=== PATIENT | male | born 1975 | race Caucasian/White ===

== ENCOUNTER 2018-01-01 08:16 | Inpatient (IN) ==
[2018-01-01] MEDS ORDERED: Heparin 1,000 UNITS/500 mL 500 ML ONE (08:32)
[2018-01-01] MEDS ORDERED: 0.9 % Sodium Chloride 1,000 ML ONE (08:32)
[2018-01-01] MEDS ORDERED: ISOVUE-370 200 ML INFUS..BTL IV ONE (08:32)
[2018-01-01] MEDS ORDERED: Verapamil 5 MG/2 ML VIAL ONE (08:32)
[2018-01-01] MEDS ORDERED: *HR* Heparin 10,000 UNIT/10 ML VIAL ONE (08:32)
[2018-01-01] MEDS ORDERED: Nitroglycerin 1,000 MCG/10 ML VIAL IV ONE (08:32)
[2018-01-01] MEDS ORDERED: *HR* Midazolam HCl 2 MG/2 ML VIAL ONE ×2 (08:46→09:26)
[2018-01-01] MEDS ORDERED: *HR* FentaNYL (PF) 100 MCG/2 ML VIAL ONE (08:47)
[2018-01-01] MEDS ORDERED: Tirofiban 12.5 MG/250ML 12.5 MG/250 ML BAG ONE (09:04)
[2018-01-01] MEDS ORDERED: Ondansetron 4 MG/2 ML VIAL IVP PRN (10:21)
--- NOTE | 2018-01-01 10:21 | Pre-Sedation Evaluation ---
Pre-sedation evaluation - Pre-sedation checklist Date of procedure: 01/01/18 Procedure: [facility] Recent Vitals: vs as documented in emr H&P (including ROS) documented in medical record: Yes Previous reaction to sedatives/anesthetics: No Dietary Status: NPO after Midnight Airway Assessment: Patient can open mouth completely, TMJ function normal Dentition: No loose teeth or bridges ASA Classification *see protocol: CLASS II-Mild systemic disease, E-EMERGENCY- Add to any of the above to indicate emergent Plan of Care: Pt appropriate candidate for procedure/moderate/conscious sedation , Risks/benefits of procedure/sedation discussed w/ patient/family, If not NPO; Risk of intake outweiged by necessity to perform procedure
--- NOTE | 2018-01-01 10:22 | Invasive Diagnostic Lab Proc ---
Name: Pedrito Ríos Date of Study: 01/01/2018 Date: 1975 Ht: 70.9in Medical Record#: [id number] Age: 42 Wt: 196.21lb Gender: Male BSA: 2.09 Order #: [id number] BMI: 27.47 Physicians Procedure Physician: Yevgeniy Vora MD, FACC Referring MD: None Referring MD: Staff Name Position Time In Sam Kearney RN Monitor 09:03 AM Brandyn Canela RN Boarding Kennel Or Cattery Operator 09:03 AM Loren Yee RT (R) Scrub 09:03 AM Indications Indication STEMI Procedures Performed Procedure PRQ CARD REVASC AK 1 VSL L HRT ARTERY/VENTRICLE ANGIO PRQ CARDIAC ANGIO ADDL ART Pre-Procedure Checklist Informed consent is complete signed and on chart. H&P is on chart. ID band is on and ID verified with patient. Pt not NPO for procedure and MD aware. The procedure was described for the patient and questions were answered. Blood Pressure: 151/107 ECG is on chart. Rhythm: NSR Plan of Care Patient will tolerate the procedure without complications. Adequate level of comfort will be maintained. Hemodynamics will remain stable Patient will recover from procedure without complications. Respiratory function will be maintained. Cardiac rhythm will remain stable. Patient temperature will be maintained. Patient and/or family have verbalized understanding of the procedure. Patient Education Chief Complaint/Reason for Test: Cardiac Cath Developmental Category: Adult (18-64 years) Developmentally Appropriate for Age: Yes Learning Barriers: None Education Needs: Procedure Education Method: Verbal Information Taught: Cardiac Cath Educational Evaluation: Able to repeat information Intravenous Access Time IV Size Location DC'd Fluid/Drip Rate Units RN 09:07 AM 18g 1 1/4" Patent On Arrival Lt Antecubital 0.9NaCl 25 ml/hr Sam Kearney RN 09:07 AM 18g 1 1/4" Patent On Arrival Rt Antecubital Sam Kearney RN Allergies No Known Allergies Vital Signs Time BP (mmHg) HR (bpm) O2 Sat. RR (bpm) LOC 08:42 AM 148 / 100 94 % 18 5 = Fully awake and oriented or at pre-proc level 09:38 AM 126 / 76 97 95 % 09:43 AM 128 / 81 88 96 % 09:48 AM 126 / 83 91 94 % 09:53 AM 124 / 84 90 95 % 09:04 AM 151 / 107 89 99 % 09:08 AM 148 / 95 94 96 % 09:13 AM 128 / 81 94 90 % 09:18 AM 128 / 84 91 93 % 09:23 AM 128 / 85 93 95 % 09:28 AM 132 / 80 95 97 % 09:33 AM 125 / 84 91 93 % Procedural Medications Time Medication Dose Units Method Given By 09:03 AM Oxygen 3 L/min nasal cannula Brandyn Canela RN 09:06 AM Lidocaine 2% 0.5 ml Subcutaneous Yevgeniy Vora MD, FAC 09:08 AM Versed 2 mg Intravenous Brandyn Canela RN 09:08 AM Fentanyl 50 mcg Intravenous Brandyn Canela RN 09:09 AM Heparin 0 units Nitroglycerin 200 mcg Verapamil 2.5 mg Intraarterial Yevgeniy Vora MD, FAC 09:25 AM Aggrastat Bolus: 46 ml Intravenous Brandyn Canela RN 09:26 AM Aggrastat 12.5mg/250ml 16.5 ml/hr Intravenous Brandyn Canela RN 09:26 AM Nitroglycerin 200 mcg Intracoronary Yevgeniy Vora MD 09:27 AM Versed 2 mg Intravenous Brandyn Canela RN 09:28 AM Fentanyl 50 mcg Intravenous Brandyn Canela RN 09:33 AM Nitroglycerin 200 mcg Intracoronary Yevgeniy Vora MD 09:43 AM Nitroglycerin 200 mcg Intracoronary Yevgeniy Vora MD ASA Classification: Emergent Procedure: ASA score is assumed Madina Score Preprocedure Postprocedure Activity 2- Moves 4 extremities sustained head lift Activity Circulation 2- SBP +/= 20 points of pre-anesthetic level Circulation Consciousness 2- Awake and alert oriented x 3 Consciousness O2 Saturation 2- Able to maintain O2 satruation of 92% on room air O2 Saturation Respiratory 2- Able to deep breathe and cough well Respiratory Total Score 10 Total Score Contrast Agent: Isovue Diagnostic Contrast: 135 ml Total Contrast: 135 ml Fluoro Dose: 692 mGy Activated Clotting Time Time Seconds to Clot 09:15 AM 212 Procedure Log Time Note Enter By 08:47 AM CathStat 09:02 AM Recorded ECG: HR=96 Condition=Condition 1 09:02 AM Case Start 09:02 AM Vitals capture started with the following parameters, Patient=Adult, Interval=5 min, Initial Gjfkpldg=776 mmHg, Deflation Rate=5 mmHg, Cuff placed on Right Arm 09:03 AM Pt arrived to metallurgical laboratory assistant 2 at 08:55, heparin gtt turned off upon arrival to the [facility] 09:03 AM Sam Kearney RN Position: Monitor Time in: : [facility] 09:03 AM Brandyn Canela RN Position: Boarding Kennel Or Cattery Operator Time in: : [facility] 09:03 AM Loren Yee RT (R) Position: Scrub Time in: 09:03 [facility] 09:03 AM Patient charges- Angio tray pack, Navilyst 3mm J, Pulse Oximetry and ACIST tubing and transducer csmith 09:03 AM Hair removed from procedure site in procedure lab using clippers. Bilateral groin & right wrist prepped with Chloraprep by Loren Yee (R), then patient was draped. Skin intact. csmith 09:03 AM Physician arrived 09: [facility] 09:03 AM Procedure start : [facility] 09:03 AM Time: 09:03 Oxygen on at 3 L/min per nasal cannula by Brandyn Canela RN [facility] 09:04 AM HR=89 bpm, PVJU=863/107 mmhg, SpO2=99.0 %, Comment=sr 09:06 AM Time out performed according to hospital policy [facility] 09:06 AM Time: 09:06 0.5 ml Lidocaine 2% to right radial Subcutaneous Given by Yevgeniy Vora MD, FACC [facility] 09:07 AM Access obtained by percutaneous puncture. 5/6Fr 11cm Terumo Glidesheath sheath placed in right Femoral artery. [id number] [facility] 09:08 AM Time: 09:08 Versed 2 mg Intravenous Given by Brandyn Canela RN [facility] 09:08 AM Time: 09:08 Fentanyl 50 mcg Intravenous Given by Brandyn Canela RN [facility] 09:08 AM HR=94 bpm, RVSA=589/95 mmhg, SpO2=96.0 %, Comment=sr 09:09 AM Time: 09:09 Patient given 0 units Heparin, 200 mcg Nitroglycerin, and 2.5 mg Verapamil Intraarterial by Yevgeniy Vora MD, FACC. This is given to reduce risk of vessel spasm and thrombosis. [facility] 09:10 AM Pressure channel 1 zeroed. 09:10 AM 0.035 260cm Navilyst 3mmJ wire [id number] [facility] 09:10 AM 6Fr RBL 3.5 Convey guide catheter was used to cannulate the PCI vessel successfully. reused? No csmith 09:10 AM Inflation device was opened. csmith 09:11 AM Recorded Pressure: Ao, EX=894, Condition=Condition 1 (Aorta) Ao 126/99/111 09:12 AM LCA angiography performed in multiple views. csmith 09:12 AM Recorded Pressure: Ao, DU=787, Condition=Condition 1 (Aorta) Ao 128/103/115 09:13 AM HR=94 bpm, DVDX=030/81 mmhg, SpO2=90.0 %, Comment=sr 09:13 AM Lesion found in Proximal LAD. Pre Stenosis: 100 Pre PRAKASH Flow: 0: No Flow/No perfusion csmith 09:14 AM .014 [place] 190cm guide wire across target lesion- successful. reused? No csmith 09:14 AM 2.0 mm x 15 mm Emerge Monorail balloon across target lesion- successful. reused? No csmith 09:14 AM act drawn and running csmith 09:15 AM At 09:15 the ACT was 212 seconds. csmith 09:15 AM Balloon inflated @ 10 tori for 11 seconds csmith 09:16 AM Balloon inflated @ 10 tori for 10 seconds csmith 09:16 AM Balloon inflated @ 10 tori for 6 seconds csmith 09:17 AM Balloon inflated @ 12 tori for 11 seconds csmith 09:18 AM HR=91 bpm, SMQH=845/84 mmhg, SpO2=93.0 %, Comment=sr 09:19 AM Balloon catheter removed intact. csmith 09:19 AM 2.25mm x 32mm Synergy drug-eluting stent across target lesion- successful Lot #[id number] csmith 09:21 AM Stent deployed @ 12 tori for 17 seconds csmith 09:22 AM Stent delivery system removed intact. csmith 09:23 AM 3.5 mm x 6mm NC Emerge balloon across target lesion- successful. reused? No csmith 09:23 AM HR=93 bpm, LGZS=252/85 mmhg, SpO2=95.0 %, Comment=sr 09:25 AM Balloon inflated @ 16 tori for 22 seconds csmith 09:26 AM Time: :25 Aggrastat Bolus: 46 ml Intravenous Given by Brandyn Canela RN Fry pump csmith 09: AM Time: : Aggrastat 12.5mg/250ml 16.5 ml/hr Intravenous Given by Brandyn Canela RN Fry pump csmith 09:26 AM Balloon catheter removed intact. csmith 09: AM Time: 09: Nitroglycerin 200 mcg Intracoronary Given by Yevgeniy Vora MD csmith 09:27 AM Lesion found in 1st Diagonal. Pre Stenosis: 99 Pre PRAKASH Flow: 2: Partial Flow/Perfusion (> 1 but < 3) csmith 09:27 AM Time: 09: Versed 2 mg Intravenous Given by Brandyn Canela RN csmith 09:28 AM Time: 09: Fentanyl 50 mcg Intravenous Given by Brandyn Canela RN csmith 09:28 AM .014 [place] 190cm guide wire across target lesion- successful. reused? No second guidewire giong to 1st diagonal csmith 09:28 AM HR=95 bpm, DHQF=538/80 mmhg, SpO2=97.0 %, Comment=sr 09:28 AM 2.0 mm x 12 mm Emerge Monorail balloon across target lesion- successful. reused? No csmith 09:30 AM Balloon inflated @ 10 tori for 22 seconds csmith 09:31 AM Balloon inflated @ 10 tori for 13 seconds csmith 09:32 AM Lesion found in Mid LAD. Pre Stenosis: 50 Pre PRAKASH Flow: 3: Complete and Brisk Flow/Perfusion csmith 09:33 AM Time: 09:33 Nitroglycerin 200 mcg Intracoronary Given by Yevgeniy Vora MD csmith 09:33 AM HR=91 bpm, QNUV=485/84 mmhg, SpO2=93.0 %, Comment=sr 09:34 AM Balloon catheter removed intact. csmith 09:35 AM 4.0 mm x 6mm NC Emerge balloon across target lesion- successful. reused? No proximal LAD csmith 09:37 AM Balloon inflated @ 12 tori for 12 seconds csmith 09:38 AM HR=97 bpm, EHUN=767/76 mmhg, SpO2=95.0 %, Comment=sr 09:39 AM Balloon catheter removed intact. csmith 09:39 AM 2.25 mm x 12mm NC Trek Rx balloon across target lesion- successful. reused to proximal LAD csmith 09:41 AM Balloon inflated @ 1 tori for 2 seconds csmith 09:42 AM Balloon inflated @ 2 tori for 2 seconds csmith 09:43 AM Time: 09:43 Nitroglycerin 200 mcg Intracoronary Given by Yevgeniy Vora MD csmith 09:43 AM HR=88 bpm, ARTR=624/81 mmhg, SpO2=96.0 %, Comment=sr 09:44 AM Balloon catheter removed intact. csmith 09:44 AM 2.75 mm x 15mm NC Trek Rx balloon across target lesion- successful. reused? No to proximal LAD csmith 09:47 AM Balloon inflated @ 14 tori for 12 seconds csmith 09:47 AM Balloon inflated @ 16 tori for 10 seconds csmith 09:47 AM wire and balloon catheter removed csmith 09:48 AM HR=91 bpm, MUDL=964/83 mmhg, SpO2=94.0 %, Comment=sr 09:50 AM 5Fr TIG catheter inserted over the wire DN csmith 09:50 AM RCA angiography performed in multiple views. csmith 09:50 AM Coronary Dominance: right csmith 09:50 AM Catheter removed csmith 09:51 AM 5Fr Pigtail catheter inserted over the wire DN csmith 09:52 AM Recorded Pressure: LV, HR=90, Condition=Condition 1 (Left Ventricle) LV 133/21/36 09:52 AM Recorded Pressure: LV, Ao, HR=91, Condition=Condition 1 (Left Ventricle) LV 128/21/38, (Aorta) Ao 115/89/102 09:53 AM Catheter removed csmith 09:53 AM Wire removed csmith 09:53 AM HR=90 bpm, MZJI=986/84 mmhg, SpO2=95.0 %, Comment=sr 09:54 AM Procedure completed at 09:54 csmith 09:54 AM Did you address PRAKASH flow and Dominance? Yes csmith 09:54 AM Sign out completed: Radiation Dose 692 mGy Fluoro Time: 8.9 Isovue 370 - 200ml contrast 135 ml given by Yevgeniy Vora MD, [facility]. Complications: NoneCardiac Rehab Consult needed: YesConfirmed administered medications: Yes csmith 09:55 AM Isovue 370 - 200ml,1 Bottle(s) used. csmith 09:55 AM Arterial sheath pulled, Vasc Band closure device used and was Successful S/N. csmith 09:55 AM 10 ml air in Vasc Band. csmith 09:55 AM Estimated Blood Loss: minimal csmith 09:55 AM Post ECG NSR csmith 09:55 AM Post Blood Pressure 124/84 csmith 09:55 AM 09:55 Post Pulses Right radial 1+ csmith 09:55 AM Information taught Vasc Band and PCI csmith 09:55 AM Education needs Responsibilities of Patient in Care csmith 09:55 AM Learning barriers :None csmith 09:55 AM Education Methods Verbal csmith 09:55 AM Education evaluation Able to repeat information csmith 09:56 AM Site status No bleeding/hematoma - Rt Wrist as reported by Yevgeniy Vora MD at 09:55 csmith 09:56 AM Plavix, Effient or Brilinta given No - given in ED csmith 09:56 AM Family placed in consult room. csmith 10:01 AM Lesion found in Proximal RCA. Pre Stenosis: 20 Pre PRAKASH Flow: 3: Complete and Brisk Flow/Perfusion csmith 10:01 AM Lesion found in Mid RCA. Pre Stenosis: 20 Pre PRAKASH Flow: 3: Complete and Brisk Flow/Perfusion csmith 10:01 AM Lesion found in Mid LAD. Pre Stenosis: 50 Pre PRAKASH Flow: 3: Complete and Brisk Flow/Perfusion csmith 10:01 AM Lesion found in Mid Circumflex. Pre Stenosis: 20 Pre PRAKASH Flow: 3: Complete and Brisk Flow/Perfusion csmith 10:16 AM Report given to Janae HUITRON Pt taken to ICU Room #7. 10:16 csmith Complications Complication None Hemodynamics Pressures Site Systolic/A Wave Diastolic/V Wave Mean AO 126 99 111 AO 128 103 115 LV 133 21 36 LV 128 21 38 AO 115 89 102 Post Procedure Information Blood Pressure: 124/84 mmHg Rhythm: NSR Post procedural instructions were given Site Checks Time Location Status Staff Sheath In? Note 09:55 AM Rt Wrist No bleeding/hematoma Yevgeniy Vora MD Pulses Time Site Pre-Procedure Post-Procedure Note 9:55:00 AM Right radial 1+ Updated by Sam Kearney RN on 01/01/2018 10:16:47 AM electronically signed on 01/01/2018 10:17:12 AM with status of Final
[2018-01-01] MEDS ORDERED: D5% in Water 1,000 ML IVC PRN (10:29)
[2018-01-01] MEDS ORDERED: *HR* Dextrose 50 % in Water (Syg) 50 ML SYRINGE IVP PRN (10:29)
[2018-01-01] MEDS ORDERED: Dextrose Gel 15 GM/37.5 ML TUBE PO PRN ×2 (10:29)
[2018-01-01] MEDS ORDERED: Tirofiban 12.5 MG/250ML 12.5 MG/250 ML BAG IVC SCH (10:30)
--- NOTE | 2018-01-01 10:32 | Cardiology History & Physical ---
Date of Encounter: 01/01/18 Time of Encounter: 10:30 Assessment and Plan (1) ST elevation myocardial infarction (STEMI) Current Visit: No Status: Acute A/R/B of emergent LHC discussed with him including 1% chance of RI//CVA/ CABG/BENY/bleeding. Pt aware and agreeable with proceeding. EF assessment will be completed and cardiac rehab ordered. Asa/brilinta/heparin given by Leeroy. Total critical care time: 1.5 hours The assessment and plan as outlined above was discussed with the patient and/or family members who expressed understanding and agreement. All questions were answered. Qualifiers: Involved coronary artery: LAD coronary artery Qualified Code(s): I21.02 - ST elevation (STEMI) myocardial infarction involving left anterior descending coronary artery (2) Diabetes Current Visit: Yes Status: Acute SSI QID FS. The assessment and plan as outlined above was discussed with the patient and/or family members who expressed understanding and agreement. All questions were answered. Qualifiers: Diabetes mellitus type: type 2 Diabetes mellitus ferry terminal agent insulin use: without [facility] use Diabetes mellitus complication status: with circulatory complication Diabetes mellitus complication detail: with other circulatory complications Qualified Code(s): E11.59 - Type 2 diabetes mellitus with other circulatory complications History of Present Illness Chief complaint: chest pain HPI: Mr. Ríos is a 42 year old male with diabetes, no previous cardiac history presenting with severe chest pain onset ~3am with dyspnea and diaphoresis. Symptoms did not stacy after 3-4 hours and presented to [place] ED with findings of anterolateral STEMI with no improvement after aspirin/ntg/morphine. Cath team activated. Past Med Surg Social Fam HX - Past Medical History Medical history: diabetes Psychiatric history: no psych history - Past Surgical History Surgical History: no surgical history - Social History Smoking Status: Current every day smoker Alcohol use: occasionally Drug use: none Medications and Allergies No Known Home Drugs 01/01/18 [History] 3 Allergy/AdvReac Type Severity Reaction Status Date / Time No Known Allergies Allergy Verified 01/01/18 07:59 All Systems Review: The remainder of the systems were reviewed and are negative - Constitutional Constitutional: no chills, no fever(s) - EENT Eyes: no blurred vision, no loss of vision Nose, mouth and throat: no bleeding gums, no epistaxis - Cardiovascular Cardiovascular: chest pain at rest, chest pain with exertion - Respiratory Respiratory: no hemoptysis, no wheezing - Gastrointestinal Gastrointestinal: no hematemesis, no hematochezia - Genitourinary Genitourinary: no hematuria, no nocturia - Musculoskeletal Musculoskeletal: no arthralgias, no myalgias - Integumentary Integumentary: no erythema, no rash - Neurological Neurological: no syncope, no tingling - Psychiatric Psychiatric: no hallucinations, no panic attacks - Hematological/Lymphatic Hematologic/Lymphatic: no easy bleeding, no easy bruising Physical Examination General: Conversant, Other (distressed) HEENT: Atraumatic Neck: No JVD Cardiac: Reg Rate and Rhythm Lungs: Normal Breath Sounds Neuro: Alert and responsive Abdomen: Soft Skin: No rashes noted on visualized skin Musculoskeletal: No Chest Wall Tenderness Extremities: No Edema
[2018-01-01] MEDS: Insulin LISPRO 300 UNITS/3 ML VIAL SQ SCH ×2 (11:12→16:13)
[2018-01-01] MEDS ORDERED: Insulin LISPRO 300 UNITS/3 ML VIAL SQ SCH ×2 (12:00→21:00)
[2018-01-01] MEDS ORDERED: Perflutren Lipid Microsphere 1.3 ML in 0.9 % Sodium Chloride 8.7 ML IVP ONE (13:53)
[2018-01-01] MEDS: *HR* Ticagrelor 90 MG TABLET PO SCH (20:24)
[2018-01-02 03:33] LABS: Basophils % 0.2 %; Eosinophils % 0.1 %; Hematocrit 45.7 % (37.5-50.1); Hemoglobin 16.1 g/dL (12.9-16.9); Immature Granulocytes % 0.6 % (0-4); Lymphocytes # 1.1 K/mcL (0.6-4.6); Lymphocytes % 6.1 %; Mean Corpuscular HGB Conc 35.2 g/dL (31.6-35.5); Mean Corpuscular Hemoglobin 29.8 pg (28.0-33.3); Mean Corpuscular Volume 84.6 fL (83.0-100.0); Monocytes # 1.3 K/mcL (0.0-1.3); Monocytes % 7.2 %; Platelet Count 163 K/mcL (140-400); Red Cell Distribution Width 13.1 % (11.5-14.5); Segmented Neutrophils % 85.8 %
[2018-01-02 03:51] LABS: BUN/Creatinine Ratio 29 (6-26); Blood Urea Nitrogen 19 mg/dL (6-20); Carbon Dioxide 12 mEq/L (23-29); Chloride 105 mEq/L (98-107); Glucose 291 mg/dL (70-105); Osmolality,Calculated 289 (280-300); Potassium 3.7 mEq/L (3.5-5.1); Sodium 133 mEq/L (136-145); eGFR For African Americans > 60 (> 60); eGFR For Non-African Americans > 60 (> 60)
[2018-01-02] MEDS ORDERED: *HR* Enoxaparin 40 MG/0.4 ML SYRINGE SQ SCH (06:00)
[2018-01-02] MEDS: *HR* Ticagrelor 90 MG TABLET PO SCH ×2 (07:43→20:30)
[2018-01-02] MEDS: Insulin LISPRO 300 UNITS/3 ML VIAL SQ SCH ×3 (07:44→16:54)
[2018-01-02] MEDS ORDERED: Aspirin 81 MG TAB.CHEW PO SCH (09:00)
--- NOTE | 2018-01-02 09:19 | Cardiology Progress Note ---
Date of Encounter: 01/02/18 Time of Encounter: 08:30 Assessment and Plan (1) STEMI (ST elevation myocardial infarction) Current Visit: Yes Status: Acute Acute anterolateral STEMI s/p PTCA/WALDO to pLAD and PTCA to diagonal on 01/01/18. TTE 01/01/18: EF 30-35%. Mild back soreness reported today, continues to improve. No chest pain or discomfort reported. Importance of DAPT discussed for minimum of 1 year interrupted. On asa, statin. Telemetry, vitals stable. No ectopy noted. Given STEMI with acute CHF, LifeVest ordered. Continue ACEi for CHF, will add low dose betablocker today. Euvolemic upon exam. Cardiac rehab. Check BMP and CBC in AM. Qualifiers: Involved coronary artery: LAD coronary artery Qualified Code(s): I21.02 - ST elevation (STEMI) myocardial infarction involving left anterior descending coronary artery (2) Tobacco abuse Current Visit: Yes Status: Acute Smoking cessation counseling. Reports cigar (x2) daily. (3) Diabetes Current Visit: Yes Status: Acute SSI QID FS. The assessment and plan as outlined above was discussed with the patient and/or family members who expressed understanding and agreement. All questions were answered. Qualifiers: Diabetes mellitus type: type 2 Diabetes mellitus [facility] insulin use: without moth exterminator use Diabetes mellitus complication status: with circulatory complication Diabetes mellitus complication detail: with other circulatory complications Qualified Code(s): E11.59 - Type 2 diabetes mellitus with other circulatory complications Discussion w patient/family: The assessment and plan as outlined above was discussed with the patient and/or family members who expressed understanding and agreement. All questions were answered. Thank you for involving us in the care of your patient. Please call with any questions. The patient was discussed and reviewed with Dr. Cha who agrees with plan as stated above. Subjective Principal diagnosis: Anterolateral STEMI Interval history: Seen and examined. Mild back "soreness" reported upon exam today, reports 2/. No other symptoms reported. Sitting up in bedside chair. Objective Vital Signs, Last 4 Hours Temp Pulse Resp BP Pulse Ox 01/02/18 08:48 105 20 119/88 100 01/02/18 07:54 98.4 F 01/02/18 07:43 90 20 127/98 100 01/02/18 06:00 112 21 129/90 97 General: Conversant, No Apparent Distress HEENT: Atraumatic, Normocephaly, Mucus Membranes Moist Cardiac: Reg Rate and Rhythm, Normal S1 and S2 Lungs: Normal Breath Sounds Neuro: Alert and responsive Abdomen: Soft Skin: No rashes noted on visualized skin Musculoskeletal: No Chest Wall Tenderness Extremities: No Edema, Normal Pulses Other: right radial cath: +2 radial pulses, brisk cap refill, no hematoma or ecchymosis present. Results 01/02/18 03:08 01/02/18 03:08 Lab Results 01/02/18 01/02/18 03:08 03:08 WBC 18.7 H Hgb 16.1 Hct 45.7 Plt Count 163 Sodium 133 L Potassium 3.7 Chloride 105 Carbon Dioxide 12 L BUN 19 Creatinine 0.66 L Glucose 291 H Calcium 9.0 Active Medications Acetaminophen (Tylenol) 500 mg PO Q6HR PRN PRN Reason: Mild Pain Stop: 07/03/18 10:22 Aspirin (Aspirin) 81 mg PO DAILY [facility]INA Stop: 07/04/18 09:01 Dextrose/Water (Dextrose 50% (Syg)) 25 ml IVP AD PRN PRN Reason: Hypoglycemia Stop: 07/03/18 10:30 Diphenhydramine HCl (Benadryl) 25 mg PO HS PRN PRN Reason: Insomnia Stop: 07/03/18 10:26 Enoxaparin Sodium (Lovenox) 40 mg SQ 0600 SINA PRN Reason: Protocol Stop: 07/04/18 06:01 Glucagon (Glucagen) 1 mg IM ONCE PRN PRN Reason: Hypoglycemia Stop: 07/03/18 10:30 Glucose (Gluctose) 15 gm PO ONCE PRN PRN Reason: Hypoglycemia Stop: 07/03/18 10:30 Glucose (Gluctose) 30 gm PO ONCE PRN PRN Reason: Hypoglycemia Stop: 07/03/18 10:30 Dextrose (Dextrose 5%) 1,000 mls @ 100 mls/hr IVC .Q10H PRN PRN Reason: HYPOGLYCEMIA Stop: 07/03/18 10:30 Insulin Human Lispro (Humalog) 0 units SQ HS [facility] PRN Reason: Protocol Stop: 07/03/18 21:01 Insulin Human Lispro (Humalog) 0 units SQ TIDAC [facility]INA PRN Reason: Protocol Stop: 07/03/18 11:31 Lisinopril (Zestril) 2.5 mg PO DAILY [facility] PRN Reason: Protocol Stop: 07/04/18 09:01 Multivitamins/Calcium (Thera M Plus) 1 tab PO DAILY [facility] Stop: 07/05/18 09:01 Ondansetron HCl (Zofran) 4 mg IVP Q8HR PRN PRN Reason: Nausea And Vomiting Stop: 07/03/18 10:22 Rosuvastatin Calcium (Crestor) 40 mg PO HS [facility] Stop: 07/03/18 21:01 Ticagrelor (Brilinta) 90 mg PO BID [facility] Stop: 07/03/18 21:01 - Imaging and Cardiology Echo: report reviewed Cardiac cath: report reviewed Other Results: 12 hour tele: avg HR=93 SR. - EKG Interpretation EKG results cardiology: personally reviewed Consult Discharge Plan - Plan Referrals: NONE,PCP [Primary Care Provider] -
[2018-01-02] MEDS ORDERED: Dextrose Gel 15 GM/37.5 ML TUBE PO PRN ×2 (10:10)
[2018-01-02] MEDS ORDERED: *HR* Dextrose 50 % in Water (Syg) 50 ML SYRINGE IVP PRN (10:10)
[2018-01-02] MEDS ORDERED: Ondansetron 4 MG/2 ML VIAL IVP PRN (10:10)
[2018-01-02] MEDS ORDERED: D5% in Water 1,000 ML IVC PRN (10:10)
[2018-01-02] MEDS: Metoprolol XL (24 HR) Succ 25 MG TAB.ER.24H PO SCH (11:24)
--- NOTE | 2018-01-02 15:32 | Electrocardiograph Report ---
[address] [place], [place] [address] Test Date: 2018-01-01 Pat Name: Pedrito Ríos Department: 109 Room: 2N13 Gender: M Rug Cleaner: : 1975 Requested By: Yevgeniy Vora Order Number: [id number] Reading MD: Yevgeniy Vora Measurements Intervals [place] Rate: 81 P: 70 NM: 201 QRS: 99 QRSD: 109 T: 96 QT: 385 QTc: 422 Interpretive Statements SINUS RHYTHM ANTEROLATERAL MYOCARDIAL INFARCTION, PROBABLY RECENT ACUTE [place] Electronically Signed On 01-02-2018 15:31:06 EDT by Yevgeniy Vora
[2018-01-02] MEDS ORDERED: Insulin LISPRO 300 UNITS/3 ML VIAL SQ SCH (21:00)
[2018-01-03 04:43] LABS: Basophils % 0.3 %; Eosinophils # 0.1 K/mcL (0.0-0.6); Eosinophils % 0.4 %; Hematocrit 44.3 % (37.5-50.1); Hemoglobin 15.3 g/dL (12.9-16.9); Immature Granulocytes % 0.8 % (0-4); Lymphocytes # 1.6 K/mcL (0.6-4.6); Lymphocytes % 12.8 %; Mean Corpuscular HGB Conc 34.5 g/dL (31.6-35.5); Mean Corpuscular Hemoglobin 29.7 pg (28.0-33.3); Mean Platelet Volume 9.9 fL (9.4-12.4); Monocytes # 1.2 K/mcL (0.0-1.3); Monocytes % 9.5 %; Neutrophils # 9.5 K/mcL (1.6-8.9); Platelet Count 140 K/mcL (140-400); Red Blood Count 5.15 M/mcL (4.19-5.50); Segmented Neutrophils % 76.2 %
[2018-01-03 05:00] LABS: BUN/Creatinine Ratio 27 (6-26); Blood Urea Nitrogen 20 mg/dL (6-20); Calcium 9.1 mg/dL (8.6-10.3); Carbon Dioxide 16 mEq/L (23-29); Chloride 103 mEq/L (98-107); Glucose 270 mg/dL (70-105); Osmolality,Calculated 286 (280-300); Potassium 3.6 mEq/L (3.5-5.1); Sodium 132 mEq/L (136-145); eGFR For African Americans > 60 (> 60); eGFR For Non-African Americans > 60 (> 60)
[2018-01-03] MEDS ORDERED: *HR* Enoxaparin 40 MG/0.4 ML SYRINGE SQ SCH (06:00)
[2018-01-03] MEDS: Metoprolol XL (24 HR) Succ 25 MG TAB.ER.24H PO SCH (08:26)
[2018-01-03] MEDS: *HR* Ticagrelor 90 MG TABLET PO SCH (08:26)
[2018-01-03] MEDS: Insulin LISPRO 300 UNITS/3 ML VIAL SQ SCH ×2 (08:28→11:49)
[2018-01-03] MEDS ORDERED: Multivit/Ca/Min/Fe/FA 1 TAB TABLET PO SCH (09:00)
[2018-01-03] MEDS ORDERED: Aspirin 81 MG TAB.CHEW PO SCH (09:00)
--- NOTE | 2018-01-03 10:01 | Discharge Summary ---
Orders not resulted at time of discharge: Pending orders 01/02/18 07:00 ECG 12 lead ECG [ECG] Routine Consider BMP at f/u d/t starting metformin and lisinopril. Date of Encounter: 01/03/18 Time of Encounter: 09:00 - Discharge Diagnosis (1) STEMI (ST elevation myocardial infarction) Priority: Primary Status: Acute Qualifiers: Involved coronary artery: LAD coronary artery Qualified Code(s): I21.02 - ST elevation (STEMI) myocardial infarction involving left anterior descending coronary artery (2) Ischemic cardiomyopathy Priority: Primary Status: Acute (3) Diabetes Priority: Secondary Status: Acute Qualifiers: Diabetes mellitus type: type 2 Diabetes mellitus fdc insulin use: without fdc use Diabetes mellitus complication status: with circulatory complication Diabetes mellitus complication detail: with other circulatory complications Qualified Code(s): E11.59 - Type 2 diabetes mellitus with other circulatory complications (4) Tobacco abuse Priority: Secondary Status: Chronic - Hospital Course Hospital course: Mr. Ríos is a 42 year old male who presented with chest pain and was found to have an acute CT. Emergent LHC completed 01/01/18. S/p PTCA/WALDO to pLAD and PTCA to diagonal down to 40%, there was a 40-50% stenosis mLAD remaining. TTE showed EF 30-35%. Life vest placed prior to discharge for cardiomyopathy. He is ambulating in the hallways with no recurrent chest pain. Currently euvolemic. Started on GDMT for his cardiomyopathy and he is tolerating. No problem noted from right radial access site. Leukocytosis noted , likely reactive due to CT. Denies signs or symptoms of infection. Reportable symptoms reviewed with patient and . Activity restrictions reviewed. He is now ready for discharge and close out-pt f/u. During hospital stay noted to have elevated blood sugars 230-300 range. Reports that he previously stopped metformin due to being well controlled. Will restart metformin and have him follow with PCP for further management. Recommend checking BMP in one week. Time spent discussing smoking cessation with patient: 3 to 10 minutes - Time Spent with Patient Total time spent providing and/or coordinating discharge services: Greater than 30 minutes (Med rec, d/c summary, d/c teaching.) - Discharge Medications Prescriptions: Aspirin 81 mg PO DAILY #30 tab.chew Lisinopril [Zestril] 2.5 mg PO DAILY #30 tablet metFORMIN [Glucophage] 500 mg PO BID #60 tablet Metoprolol XL (24 HR) Succ [Toprol Xl] 12.5 mg PO DAILY #30 tab.er.24h Rosuvastatin [Crestor] 40 mg PO HS #30 tablet Ticagrelor [Brilinta] 90 mg PO BID #60 tablet Home Medications: Multivit-Min/Iron/Folic Acid/K [Adults Multivitamin Caplet] 1 tab PO DAILY 01/01 [History] Aspirin 81 mg PO DAILY #30 tab.chew 01/03/18 [Rx] Lisinopril [Zestril] 2.5 mg PO DAILY #30 tablet 01/03/18 [Rx] Metoprolol XL (24 HR) Succ [Toprol Xl] 12.5 mg PO DAILY #30 tab.er.24h 01/03/18 [Rx] Rosuvastatin [Crestor] 40 mg PO HS #30 tablet 01/03/18 [Rx] Ticagrelor [Brilinta] 90 mg PO BID #60 tablet 01/03/18 [Rx] metFORMIN [Glucophage] 500 mg PO BID #60 tablet 01/03/18 [Rx] Allergies/Adverse Reactions: 3 Allergy/AdvReac Type Severity Reaction Status Date / Time No Known Allergies Allergy Verified 01/01/18 10:49 Date of admission: 01/01/18 10:14 Primary care physician: PCP NONE Consults: 01/01/18 10:21 Consult to Cardiac Rehabilitation-Phase1 [CONS] Routine Comment: Reason for Consult: AMI Call Completed: Yes Consult to Nurse Navigator [CONS] Routine Comment: 01/01/18 10:42 Consult to Floor Surfacer [CONS] Routine Reason for SW Consult: No insurance; advance directive information Discharging clinician: Adelfo Zamudio Anticipated date of discharge: 01/03/18 Physical Examination Vital Signs, Last 4 Hours Temp Pulse Resp BP Pulse Ox 01/03/18 07:32 98.3 F 87 18 108/74 98 General: Conversant, No Apparent Distress HEENT: Atraumatic, Normocephaly, Mucus Membranes Moist Neck: No JVD, Normal carotid pulses Cardiac: Reg Rate and Rhythm, Normal S1 and S2, No Murmur Lungs: Normal Breath Sounds, No Wheeze, Rales, Rhonchi Neuro: Alert and responsive, No focal deficits noted Abdomen: Soft, Non-Tender Skin: No rashes noted on visualized skin Musculoskeletal: No Chest Wall Tenderness Extremities: No Clubbing, No Cyanosis, No Edema, Normal Pulses, Other (No problem with right radial access. ) - Patient Status Disposition: Home, Self-Care Condition: Good Functional capacity at discharge: independent ambulation Overall status at discharge: patient is progressing back to baseline - Discharge Instructions Follow Up With: Yevgeniy Vora MD [Partnered Physician] - (office will call patient at home with follow up appointment) Sudha Patel CNP [Advanced Practice Nurse] - 01/10/18 12:30 pm (PLEASE TAKE YOUR NEW PATIENT PACKET FILLED OUT WITH YOU TO YOUR DOCTORS OFFICE. TAKE PICTURE ID, INSURANCE CARD, LIST OF ALL MEDICATIONS INCLUDING OVER THE COUNTER MEDS. SHOW UP 15 MINS EARLY FOR YOUR APPOINTMENT. IF YOU NEED TO CANCEL PLEASE CALL [phone] WITHIN 24 HOURS OF YOUR APPOINTMENT. THESE DOCTORS DO NOT GIVE CONTROLLED MEDS. THIS OFFICE IS LOCATED IN THE [facility] AREA) - Diet and Activity Activity: increase activity as tolerated Diet: diabetic diet, low fat, low cholesterol
[2018-01-03 11:23] VITALS: BP 105/73
[2018-01-03] MEDS: *HR* Metformin 500 MG TABLET PO SCH ×2 (11:48→17:00)
== END 2018-01-03 17:20 | disposition home or self-care (01) | DRG 174 ==
LOC: ICNU 10:14 → 2NNU 01-02 14:23
PROVIDERS: ADMIT Emergency Medicine; ATTEND Emergency Medicine